=== PATIENT | female | born 1960 | race American Indian/Alaskan Native ===

== ENCOUNTER 2018-05-08 12:49 | Observation (INO) | payer OTHER, MEDICARE, MEDICAID ==
[2018-05-08 12:54] VITALS: BMI 33.5
--- NOTE | 2018-05-08 13:23 | ED PDOC ---
Arrival/HPI - General Chief Complaint: Back Pain Time Seen by Provider: 05/08/18 13:16 Historian: Patient - History of Present Illness Narrative History of Present Illness (Text): 05/08/18 13:17 58 y/o female, pmh including renal stone/lumber disc herniation with infusion surgery perform couple years ago/DVT at age 20, nkda, c/o lower back pain x several months. Pt. stated that she has lower back pain for several years which she had lumbar disc fusion performed by Dr. Love, been seen pain management, more worsening pain for the past few months with no new injury or fall and following up with Dr. Love which trying to apply epidural and nerve block injection for her. Pt. stated that she started to have lower back pain today again as usual, wants to have pain control, no numbness or tingling, no chest pain or shortness of breath. Pt. stated that the lower back pain radiating from the lower back to the bilateral lower extremity to the ankle region with right greater than left, no numbness or tingling, no urinary or bowel incontinence or retention, no other medical or psychological complaints. Past Medical History - Provider Review Nursing Documentation Reviewed: Yes - Infectious Disease Hx of Infectious Diseases: None - Neurological Other/Comment: NUMBNESS TINGLING HANDS - HEENT Other/Comment: FLOATERS IN EYES - Renal Hx Kidney Stones: Yes (PASSED WITHOUT SURGERY) - Hematological/Oncological Hx Anemia: Yes Hx Blood Transfusions: Yes (FOR POST MENOPAUSAL BLEEDING ) - Musculoskeletal/Rheumatological Hx Back Pain: Yes Hx Falls: Yes (AT WORK 2011) Hx Herniated Disk: Yes (DISPLACEMENT) Other/Comment: Back surgery/fusion. L knee sx - Psychiatric Hx Depression: No Hx Emotional Abuse: No Hx Physical Abuse: No Hx Substance Use: No - Surgical History Hx Appendectomy: Yes Hx Arthroscopy: Yes (LEFT KNEE 2012) Hx Dilation and Curettage: Yes Hx Hysterectomy: Yes - Anesthesia Hx Anesthesia: Yes Hx Anesthesia Reactions: No Hx Malignant Hyperthermia: No - Suicidal Assessment Feels Threatened In Home Enviroment: No Family/Social History - Physician Review Nursing Documentation Reviewed: Yes Family/Social History: Unknown Family HX Smoking Status: Former Smoker Hx Alcohol Use: No Hx Substance Use: No Hx Substance Use Treatment: No Allergies/Home Meds Allergies/Adverse Reactions: Allergies No Known Allergies Allergy (Verified 02/04/14 10:01) Home Medications: Home Meds Medication Instructions Recorded Confirmed Ibuprofen [Motrin Tab] 1 tab PO DAILY PRN 05/08/18 05/08/18 Nortriptyline [Pamelor] 2 tab PO HS 05/08/18 05/08/18 Oxycodone HCl/Acetaminophen 1 tab PO Q6H PRN 05/08/18 05/08/18 [Endocet 10-325 mg Tablet] Pregabalin [Lyrica] 1 cap PO TID 05/08/18 05/08/18 tiZANidine [Zanaflex] 2 tab PO PRN PRN 05/08/18 05/08/18 Review of Systems - Review of Systems Constitutional: absent: Fatigue, Fevers Eyes: absent: Vision Changes ENT: absent: Hearing Changes Respiratory: absent: SOB, Cough Cardiovascular: absent: Chest Pain Gastrointestinal: absent: Abdominal Pain, Nausea, Vomiting Musculoskeletal: Arthralgias, Back Pain Skin: absent: Rash, Pruritis Neurological: absent: Headache, Dizziness Psychiatric: absent: Anxiety, Depression, Suicidal Ideation Physical Exam Vital Signs Temp Pulse Resp BP Pulse Ox 05/08/18 15:30 89 18 144/99 H 99 05/08/18 13:00 98 F 90 18 155/90 H 98 Pain Distress: Severe - Systems Exam Head: Present: Atraumatic, Normocephalic Pupils: Present: PERRL Extroacular Muscles: Present: EOMI Conjunctiva: Present: Normal Mouth: Present: Moist Mucous Membranes Neck: Present: Normal Range of Motion Respiratory/Chest: Present: Clear to Auscultation, Good Air Exchange. No: Respiratory Distress, Accessory Muscle Use Cardiovascular: Present: Regular Rate and Rhythm, Normal S1, S2. No: Murmurs Abdomen: No: Tenderness, Distention, Peritoneal Signs Back: Present: Normal Inspection, Paraspinal Tenderness (Ls spine: +ttp on the rt. paraspinal muscle region, no midline tenderness or step off, no rash, no cva tenderness, FROM without limitation, sensation intact, motor 5/5. ). No: CVA Tenderness, Midline Tenderness Upper Extremity: Present: Normal Inspection. No: Cyanosis, Edema Lower Extremity: Present: Normal Inspection, Other (+swelling to the rt. upper thigh region). No: Edema Neurological: Present: GCS=15, CN II-XII Intact, Speech Normal, Motor Func Grossly Intact, Memory Normal Skin: Present: Warm, Dry, Normal Color. No: Rashes Psychiatric: Present: Alert, Oriented x 3, Normal Insight, Normal Concentration Medical Decision Making ED Course and Treatment: 05/08/18 13:28 -UA -IV toradol/valium -LS spine xray/RLE Venuous doppler -observe and reassess 05/08/18 15:46 -Labs ordered, still in pain, morphine ordered. -Pt. refused rectal examination. 05/08/18 16:36 -Bilateral lower extremities venuous doppler: Extensive bilateral post phlebitic changes, greater on the right than the left. No acute DVT. -LS spine xray: There is intradiscal and intrapedicular fusion at L4-5 and L5- S1. There is mild anterior subluxation of L3 over L4. -UA show no UTI -Labs show no acute findings except magnesium 2.3 (normal renal function) -Coag panel within normal limit -Pt. still in pain, limited relief with toradol/valium/morphine, stated that the pain still persist, will call the pmd for admission for observation for this intractable pain. 05/08/18 17:18 -I spoke to Dr. Vaughn, covering DR. Islas, discussed about the case and request to admit to the hospitalist as she is leaving the town. -[facility] hospitalist. -I spoke to the hospitalist, Dr. Prakash Solano, discussed about the case/labs/ radiology result, will admit the patient for observation. -I discussed with Dr. Monozn, he will put in the admission order. - Lab Interpretations Lab Results: 05/08/18 14:00 05/08/18 14:00 Lab Results 05/08/18 14:45: Urine Color Yellow, Urine Appearance Clear, Urine pH 7.0, Ur Specific Ranger 1.020, Urine Protein Trace H, Urine Glucose (UA) Negative, Urine Ketones Negative, Urine Blood Negative, Urine Nitrate Negative, Urine Bilirubin Negative, Urine Urobilinogen 0.2, Ur Leukocyte Esterase Negative, Urine RBC 0 - 2, Urine WBC 1 - 3, Ur Epithelial Cells 4 - 5, Urine Bacteria Many 05/08/18 14:00: WBC 4.6 D, RBC 4.82, Hgb 13.0, Hct 40.0, MCV 83.0, MCH 27.0, MCHC 32.5, RDW 14.4, Plt Count 210, MPV 11.7 H, Gran % 22.0 L, Lymph % (Auto) 68.5 H, [place] % (Auto) 6.7 H, Eos % (Auto) 2.4, Baso % (Auto) 0.4, Gran # 1.02 L , Lymph # (Auto) 3.2, [place] # (Auto) 0.3, Eos # (Auto) 0.1, Baso # (Auto) 0.02 05/08/18 14:00: Sodium 143, Potassium 4.2, Chloride 107, Carbon Dioxide 26, Anion Gap 15, BUN 11, Creatinine 0.7, Est GFR ( Amer) > 60, Est GFR (Non- Af Amer) > 60, Random Glucose 80, Calcium 9.7, Magnesium 2.3 H, Total Bilirubin 0.5, AST 40 H, ALT 29, Alkaline Phosphatase 46, Total Protein 7.7, Albumin 4.4, Globulin 3.3, Albumin/Globulin Ratio 1.4 05/08/18 14:00: PT 10.6, INR 0.93, APTT 28.1, D-Dimer, Quantitative < 200 - RAD Interpretation Radiology Orders: 05/08/18 13:23 LS SPINE WITH OBL > 18 YRS OLD [RAD] Stat DUPLEX LOWER EXTRM VEIN BILAT [US] Stat LS spine: Date of service: 05/08/2018 PROCEDURE: Radiographs of the Lumbar Spine. HISTORY: lower back pain for months COMPARISON: No prior. FINDINGS: BONES: Normal alignment. No listhesis. No fracture. DISC SPACES: There is intradiscal and intrapedicular fusion at L4-5 and L5-S1. There is mild anterior subluxation of L3 over L4. OTHER FINDINGS: None. IMPRESSION: There is intradiscal and intrapedicular fusion at L4-5 and L5-S1. There is mild anterior subluxation of L3 over L4. Bilateral lower extremities venuous doppler: TECHNIQUE: Duplex sonography and color-flow Doppler with graded compression were used to evaluate the deep venous systems of both lower extremities. FINDINGS: There are extensive chronic post phlebitic changes in the right common femoral vein, femoral vein, right popliteal vein and proximal right profunda femoral vein. No hypoechoic occlusive thrombus is present to suggest acute DVT. Mild post phlebitic changes are also noted in the left common femoral vein, femoral vein and popliteal vein. . IMPRESSION: Extensive bilateral post phlebitic changes, greater on the right than the left. No acute DVT. [place] Surfacer: Radiologist - Medication Orders Current Medication Orders: Discontinued Medications Diazepam (Valium) 10 mg PO ONCE ONE PRN Reason: Protocol Stop: 05/08/18 13:25 Last Admin: 05/08/18 13:53 Dose: 10 mg Sodium Chloride (Sodium Chloride 0.9%) 500 mls @ 999 mls/hr IV .Q31M STA Stop: 05/08/18 13:59 Last Admin: 05/08/18 13:55 Dose: 999 mls/hr eMAR Start Stop Document 05/08/18 13:55 SILVINA (Rec: 05/08/18 13:56 SILVINA ANGLIN-PC) Intravenous Solution Start Date 05/08/18 Start Time 13:55 End Date 05/08/18 End time 14:25 Total Infusion Time 30 Ketorolac Tromethamine (Toradol) 30 mg IVP STAT STA Stop: 05/08/18 13:24 Last Admin: 05/08/18 13:54 Dose: 30 mg MAR Pain Assessment Document 05/08/18 13:54 SILVINA (Rec: 05/08/18 13:54 SILVINA HAGER) Pain Reassessment Is this a pain reassessment? No Sleep Is patient sleeping during reassessment? No Presence of Pain Presence of Pain Yes Description Description Intermittent IVP Administration Document 05/08/18 13:54 SILVINA (Rec: 05/08/18 13:54 SILVINA HAGER) Charges for Administration # of IVP Administrations 1 Lidocaine (Lidoderm) 1 ea TD STAT STA Stop: 05/08/18 13:29 Last Admin: 05/08/18 13:53 Dose: 1 ea MAR Transdermal Patch Site Document 05/08/18 13:53 SZA (Rec: 05/08/18 13:53 [facility] [id number]) Transdermal Patch Site Transdermal Patch Site Right Lower Back Morphine Sulfate (Morphine) 6 mg IVP STAT STA Stop: 05/08/18 15:46 Last Admin: 05/08/18 16:10 Dose: 6 mg MAR Pain Assessment Document 05/08/18 16:10 SZA (Rec: 05/08/18 16:10 [facility] [id number]) Pain Reassessment Is this a pain reassessment? No Sleep Is patient sleeping during reassessment? No Presence of Pain Presence of Pain Yes Pain Scale Used Pain Scale Used Numeric Description Description Intermittent Intensity of Pain at present 6 IVP Administration Document 05/08/18 16:10 SILVINA (Rec: 05/08/18 16:10 [facility] [id number]) Charges for Administration # of IVP Administrations 1 - PA / PARTS REMOVER / Resident Statement MD/DO has reviewed & agrees with the documentation as recorded. Disposition/Present on Arrival - Present on Arrival Any Indicators Present on Arrival: No History of DVT/PE: No History of Uncontrolled Diabetes: No Urinary Catheter: No History of Decub. Ulcer: No History Surgical Site Infection Following: None - Disposition Have Diagnosis and Disposition been Completed?: Yes Diagnosis: Intractable low back pain Disposition: HOSPITALIZED Disposition Time: 13:28 Patient Plan: Admission, Observation Patient Problems: Current Active Problems Problem Status Onset Intractable low back pain Acute Condition: STABLE Referrals: Jaya Islas MD [Primary Care Provider] - Follow up with primary Forms: [employer] (Greek)
[2018-05-08] MEDS ORDERED: Lidocaine 5% Patch TD STA (13:28)
[2018-05-08] MEDS ORDERED: Sodium Chloride 0.9% 500 ML IV STA (13:29)
[2018-05-08 14:54] LABS: URINE BILIRUBIN NEGATIVE (NEGATIVE); URINE BLOOD NEGATIVE (NEGATIVE); URINE GLUCOSE (UA) NEGATIVE (NEGATIVE); URINE LEUKOCYTE ESTERASE NEGATIVE Leu/uL (NEGATIVE); URINE PROTEIN TRACE mg/dL (<30 mg/dL); URINE UROBILINOGEN 0.2 E.U./dL (<1 E.U./dL)
[2018-05-08 14:55] LABS: URINE APPEARANCE CLEAR (CLEAR); URINE COLOR YELLOW (YELLOW)
[2018-05-08 15:02] LABS: URINE BACTERIA MANY (NEG); URINE RBC 0 - 2 /hpf (0-2)
[2018-05-08] MEDS ORDERED: Morphine 4 mg/ml ISec IVP STA (15:45)
--- NOTE | 2018-05-08 15:45 | US ---
HISTORY: Leg pain and swelling. Evaluate for DVT PHYSICIAN(S): Iván Camarena MD. TECHNIQUE: Duplex sonography and color-flow Doppler with graded compression were used to evaluate the deep venous systems of both lower extremities. FINDINGS: There are extensive chronic post phlebitic changes in the right common femoral vein, femoral vein, right popliteal vein and proximal right profunda femoral vein. No hypoechoic occlusive thrombus is present to suggest acute DVT. Mild post phlebitic changes are also noted in the left common femoral vein, femoral vein and popliteal vein. . IMPRESSION: Extensive bilateral post phlebitic changes, greater on the right than the left. No acute DVT.
--- NOTE | 2018-05-08 15:50 | RAD ---
Date of service: 05/08/2018 PROCEDURE: Radiographs of the Lumbar Spine. HISTORY: lower back pain for months COMPARISON: No prior. FINDINGS: BONES: Normal alignment. No listhesis. No fracture. DISC SPACES: There is intradiscal and intrapedicular fusion at L4-5 and L5-S1. There is mild anterior subluxation of L3 over L4. OTHER FINDINGS: None. IMPRESSION: There is intradiscal and intrapedicular fusion at L4-5 and L5-S1. There is mild anterior subluxation of L3 over L4.
[2018-05-08 16:15] LABS: BASO # 0.02 K/mm3 (0.0-2.0); BASO % 0.4 % (0.0-3.0); EOS # 0.1 (0.0-0.7); EOS % 2.4 % (1.5-5.0); GRAN # 1.02 (1.4-6.5); LYMPH # 3.2 (1.2-3.4); LYMPH % 68.5 % (22.0-35.0); MEAN CORPUSCULAR HGB CONC 32.5 g/dl (31.0-37.0); MEAN PLATELET VOLUME 11.7 fl (7.0-11.0); MONO # 0.3 (0.1-0.6); MONO % 6.7 % (1.0-6.0); RBC 4.82 10^6/uL (3.5-6.1); RED CELL DISTRIBUTION WIDTH 14.4 % (11.5-14.5); WHITE BLOOD COUNT 4.6 10^3/ul (4.5-11.0)
[2018-05-08 16:26] LABS: ALB/GLOB RATIO 1.4 (1.1-1.8); ALBUMIN 4.4 g/dL (3.0-4.8); CALCIUM 9.7 mg/dL (8.4-10.5); D DIMER < 200 ng/mL (0-243); GFR AFRICAN-AMERICAN > 60; GFR NON-AFRICAN AMERICAN > 60; INR 0.93 (0.93-1.08); PARTIAL THROMBOPLASTIN TIME 28.1 Seconds (25.1-36.5); PROTHROMBIN TIME 10.6 SECONDS (9.4-12.5)
[2018-05-08 16:27] LABS: ALT/SGPT 29 U/L (7-56); AST/SGOT 40 U/L (14-36); BLOOD UREA NITROGEN 11 mg/dL (7-21)
--- NOTE | 2018-05-08 18:57 | CP.PCM.HP ---
<Harshad Rios - Last Filed: 05/08/18 20:48> History of Present Illness - History of Present Illness History of Present Illness: 58 y o female PMhx lumbar disc herniation s/p fusion surgery in [address] Love, DVT during , nephrolithiasis in Nov 2017 medically managed, presents to the ED with a chief complaint of R lower back pain radiating down to the R leg and ankle x 3 mos. Pt states that she has a long- standing hx of back pain, states she was injured back in 2011 after a fall at work, had spinal surgery and was following with pain management (Dr. Nadja Austin) for the past several years. Pt states that she has had back pain during this entire period that radiated down to her R knee, but that the extension of her pain down to her R ankle happened over the past 3 months. Pt states she followed up with Dr. Love in clinic last week and per his recommendation , was supposed to have a nerve block performed over the affected area, but states that she has to wait for her insurance to clear it before she can have the nerve block. Pt states she came to the ED today because she could not stand the pain anymore. Denies bowel/bladder incontinence. Pt states she is able to ambulate at home on own but that she has been bending her back forward more because of the pain. Denies fever, chills, headache, dizziness, chest pain, sob , n/v/d/c, abd pain, urinary complaints, or other symptoms. In ED, pt received valium, toradol, and morphine 1x doses with minimal pain relief. LE Doppler demonstrated extensive bilateral chronic post phlebitic changes, greater on the right than the left, and no acute DVT. Lumbar XR showed intradiscal and inntrapedicular fusion at L4-L5 and L5-S1, and mild anterior subluxation of L3 over L4. PMhx: Lumbar disc herniation, chronic back pain, DVT during , nephrolithiasis (medically managed in Nov 2017) PSurgHx: Spinal fusion surgery in 2011, L total knee replacement several years ago Allergies: NKDA Meds: Lyrica 150 mg tid, Endocet 10-325 mg 1 tab q 6 h PRN, Nortriptyline 10 mg 2 tabs PO hs, Tizanidine 2 mg 2 tabs PO PRN, Motrin 800 mg Fam hx: Mom May 2017 from pancreatic cancer, Maternal aunt - uterine cancer, Second maternal aunt - due to blood clot, Maternal uncle - lung cancer Soc hx: Smoked 2 cigarettes/day and quit 20 y ago, social alcohol use, denies illegal drug use PMD: Dr. Islas Pain management: Dr. Nadja Austin Neurosurgery: Dr. Love Present on Admission - Present on Admission Any Indicators Present on Admission: Yes History of DVT/PE: Yes Review of Systems - Constitutional Constitutional: As Per HPI. absent: Anorexia, Chills, Daytime Sleepiness, Excessive Sweating, Fatigue, Fever, Frequent Falls, Headache, Increased Appetite , Lethargy, Malaise, Night Sweats, Snoring, Sleep Apnea, Weight Gain, Weight Loss, Weakness, Other - Cardiovascular Cardiovascular: absent: As Per HPI, Acrocyanosis, Chest Pain, Chest Pain at Rest , Chest Pain with Activity, Claudication, Diaphoresis, Dyspnea, Dyspnea on Exertion, Edema, Irregular Heart Rhythm, Pain Radiating to Arm/Neck/Jaw, Leg Edema, Leg Ulcers, Lightheadedness, Orthopnea, Palpitations, Paroxysmal Nocturnal Dyspnea, Pedal Edema, Radiating Pain, Rapid Heart Rate, Slow Heart Rate, Syncope, Other - Respiratory Respiratory: absent: As Per HPI, Cough, Dyspnea, Hemoptysis, Dyspnea on Exertion , Wheezing, Snoring, Stridor, Pain on Inspiration, Chest Congestion, Excessive Mucous Production, Change in Mucous Color, Pain with Coughing, Other - Gastrointestinal Gastrointestinal: absent: As Per HPI, Abdominal Pain, Belching, Bloating, Change in Bowel Habits, Change in Stool Character, Coffee Ground Emesis, Constipation, Cramping, Diarrhea, Dyspepsia, Dysphagia, Early Satiety, Excessive Flatus, Fecal Incontinence, Heartburn, Hematemesis, Hematochezia, Loose Stools, Melena, Nausea, Odynophagia, Temesmus, Vomiting, Other - Genitourinary Genitourinary: absent: As Per HPI, Change in Urinary Stream, Difficulty Urinating, Dysuria, Flank Pain, Hematuria, Pyuria, Nocturia, Urinary Incontinence, Urinary Frequency, Urinary Hesitance, Urinary Urgency, Voiding Freq/Small Amts, Freq UTI, Hx Renal/Bladder Calculi, Hx /Renal Surgery, Bladder Distension, Other - Musculoskeletal Musculoskeletal: As Per HPI, Back Pain, Limited Range of Motion, Muscle Cramps, Numbness, Radiating Pain into Limb, Tingling. absent: Abnormal Gait, Arthralgias, Atrophy, Deformity, Joint Swelling, Loss of Height, Muscle Weakness , Myalgias, Neck Pain, Stiffness, Other - Neurological Neurological: Numbness, Radicular Pain, Tingling. absent: As Per HPI, Abnormal Gait, Abnormal Hearing, Abnormal Movements, Abnormal Speech, Behavioral Changes , Burning Sensations, Confusion, Convulsions, Disequilibrium, Dizziness, Focal Weakness, Frequent Falls, Headaches, Lack of Coordination, Loss of Vision, Memory Loss, Paresthesias, Restless Legs, Sensory Deficit, Syncope, Tremor, Vertigo, Weakness, Other Visual Disturbances, Other Past Patient History - Infectious Disease Hx of Infectious Diseases: None - Past Social History Smoking Status: Former Smoker - NEUROLOGICAL Other/Comment: NUMBNESS TINGLING HANDS - HEENT Other/Comment: FLOATERS IN EYES - RENAL Hx Kidney Stones: Yes (PASSED WITHOUT SURGERY) - HEMATOLOGICAL/ONCOLOGICAL Hx Anemia: Yes Hx Blood Transfusions: Yes (FOR POST MENOPAUSAL BLEEDING ) - MUSCULOSKELETAL/RHEUMATOLOGICAL Hx Back Pain: Yes Hx Falls: Yes (AT WORK 2011) Hx Herniated Disk: Yes (DISPLACEMENT) Other/Comment: Back surgery/fusion. L knee sx - PSYCHIATRIC Hx Depression: No Hx Emotional Abuse: No Hx Physical Abuse: No Hx Substance Use: No - SURGICAL HISTORY Hx Appendectomy: Yes Hx Arthroscopy: Yes (LEFT KNEE 2012) Hx Dilation and Curettage: Yes Hx Hysterectomy: Yes - ANESTHESIA Hx Anesthesia: Yes Hx Anesthesia Reactions: No Hx Malignant Hyperthermia: No Meds Allergies/Adverse Reactions: Allergies Allergy/AdvReac Type Severity Reaction Status Date / Time No Known Allergies Allergy Verified 02/04/14 10:01 Physical Exam - Constitutional Appears: Well, Younger Than Stated Age Additional comments: mild/moderate acute distress - Head Exam Head Exam: ATRAUMATIC, NORMAL INSPECTION, NORMOCEPHALIC - Eye Exam Eye Exam: EOMI, Normal appearance, PERRL - ENT Exam ENT Exam: Mucous Membranes Moist, Normal Oropharynx - Neck Exam Neck exam: Positive for: Full Rom, Normal Inspection - Respiratory Exam Respiratory Exam: Clear to Auscultation Bilateral, NORMAL BREATHING PATTERN - Cardiovascular Exam Cardiovascular Exam: REGULAR RHYTHM, +S1, +S2 - GI/Abdominal Exam GI & Abdominal Exam: Normal Bowel Sounds, Soft Additional comments: Non-tender, non-distended - Extremities Exam Extremities exam: Positive for: normal capillary refill, normal inspection, pedal pulses present Additional comments: R foot drop noted, Pos straight leg raise on R lower extremity - Back Exam Additional comments: Tenderness to palpation in R mid-lower back at levels T12-L5; hypertonicity present at levels T12-L5 on R side - Neurological Exam Neurological exam: Alert, CN II-XII Intact, Oriented x3 Additional comments: Motor and sensation intact in all extremities, tenderness to palpation in R anterior and lateral upper thigh - Psychiatric Exam Psychiatric exam: Normal Affect, Normal Mood - Skin Skin Exam: Dry, Intact, Normal Color, Warm Results - Vital Signs Recent Vital Signs: Last Vital Signs Temp 98.6 F 05/08/18 17:17 Pulse 76 05/08/18 17:17 Resp 20 05/08/18 17:17 BP 144/74 05/08/18 17:17 Pulse Ox 100 05/08/18 17:17 - Labs Result Diagrams: 05/08/18 14:00 05/08/18 14:00 Assessment & Plan - Assessment and Plan (Free Text) Assessment: 58 y o female PMhx lumbar disc herniation s/p fusion surgery [place] [address] Love, DVT during , nephrolithiasis in Nov 2017 medically managed, presents with worsening R lower back pain radiating down to the R leg and ankle x 3 mos. Pt admitted for intractable back pain. Plan: Intractable back pain Likely 2/2 chronic back pain hx and failure of outpatient PO pain control S/p valium, morphine, toradol in ED with minimal relief LE Doppler: extensive bilateral chronic post phlebitic changes, greater on the right than the left, and no acute DVT Lumbar XR: intradiscal and inntrapedicular fusion at L4-L5 and L5-S1, and mild anterior subluxation of L3 over L4 Morphine 4 mg q 4 h IVP Flexeril 10 mg q 8 h PRN C/w home meds Lyrica, Nortriptyline Hold home meds Endocet, Tizanadine, Motrin Zofran 4 mg q 6 h PRN nausea/vomiting S/p decadron 10 mg IVP x1 Neurosurgery consulted, recs appreciated Warm compresses to affected areas Regular diet PT eval pending GI/DVT ppx: Protonix, heparin 5000 U subQ q 12 h Pt seen, examined with, and plan discussed with Dr. Solano, attending <Laura Solano R - Last Filed: 05/09/18 07:51> Results - Vital Signs Recent Vital Signs: Last Vital Signs Temp 98.6 F 05/08/18 21:20 Pulse 76 05/08/18 21:20 Resp 20 05/08/18 21:20 BP 144/74 05/08/18 21:20 Pulse Ox 100 05/08/18 20:30 - Labs Result Diagrams: 05/08/18 14:00 05/08/18 14:00 Attending/Attestation - Attestation I have personally seen and examined this patient.: Yes I have fully participated in the care of the patient.: Yes I have reviewed all pertinent clinical information: Yes Notes (Text): Patient seen and examined by me at 18:15 with resident 05/08/18. Case including HPI, physical exam, and physical assessment and plan discussed with resident. Agree with above with following additions/corrections. Patient is 58-year-old female with past medical history significant for lumbar disc herniation status post fusion, DVTs during , nephrolithiasis, and chronic back pain that presents to the emergency room with worsening of lower back pain radiating down her right leg. Patient states that she has been having this pain for approximately 3 months and has been worsening. Patient has radiation of the pain and tingling and numbness down her right leg. Pain is constant and can be sharp or crampy. Patient does follow with neurosurgery and pain management. She states that she was supposed to have a nerve block however this has happened yet. Patient states that her pain on a scale of 1-10, 10 being the worst pain she has ever felt, pain is greater than 10 out of 10. She has tried Motrin, Endocet, tizanidine, nortriptyline, and Lyrica with minimal relief. Patient states she has also tried warm compresses with temporary relief. No associated bowel or bladder incontinence. No chest pain or shortness of breath. No headaches or dizziness. No fevers or chills. No nausea, vomiting, abdominal pain. No dysuria. No diarrhea or constipation. Patient was given Valium and morphine in the emergency room with no relief. All 14 point review of systems reviewed by me. See above HPI. All the other systems are negative. Physical exam: Gen: Awake and alert sitting up in bed in no acute distress HEENT: Normocephalic, atraumatic. Extraocular muscles intact, pupils equal reactive, no scleral icterus. Oropharynx is pink and moist, no pharyngeal erythema or exudate appreciated. Neck is supple. Hearing grossly intact. Ears and nose externally unremarkable. Cardiovascular: Normal rhythm, normal S1-S2. No murmurs, rubs, or gallops appreciated Pulmonary: Normal respiratory effort. No rhonchi, rales or wheezing appreciated. Gastrointestinal: Soft, nontender, nondistended, positive bowel sounds all 4 quadrants, no guarding Musculoskeletal: Decreased range of motion at right lower extremity, positive right straight leg test, positive hypertonicity and spasms on right paraspinal muscles from midthoracic to lower lumbar area Central nervous system: AAO 3. Cranial nerves 2 through 12 grossly intact. Sensation intact. Dermatologic: Skin warm and dry Assessment and plan: Patient is 58-year-old female with past medical history significant for lumbar disc herniation status post fusion, DVTs during , nephrolithiasis, and chronic back pain that presents to the emergency room with worsening of lower back pain radiating down her right leg. Patient found to have lower back pain with radiculopathy 1. Intractable back pain with radiculopathy. Lumbar x-ray per radiologist shows intradiscal and interpedicular fusion at L4, L5 and L5, S1 mild anterior subluxation of L3 over L4. Patient states that the subluxation is chronic and she has been following her doctors for this. Patient's neurosurgeon Dr. Love consulted, follow-up recommendations. Patient given a dose of Decadron to aid in improvement inflammation. Patient placed on morphine and Flexeril for pain management. Continued on home nortriptyline and Lyrica. PT eval and treat. Monitor for improvement. Bilateral lower extremity venous Dopplers per radiologist shows extensive bilateral postphlebitic changes, greater on the right than the left; no acute DVT. Changes seen are likely secondary to patient's history of DVTs. 2. GI and DVT prophylaxis. Protonix and heparin Case was discussed in detail with the patient and spanish medical interpreter regarding current diagnosis and treatment plan.
[2018-05-08] MEDS: Morphine 4 mg/ml ISec IVP SCH ×2 (19:15→23:12)
[2018-05-08] MEDS ORDERED: Pneumococcal 23-Valent Vaccine IM ONE (21:46)
[2018-05-09] MEDS ORDERED: Morphine 2 mg/ml ISec IVP ONE (01:27)
[2018-05-09] MEDS: Morphine 4 mg/ml ISec IVP SCH ×2 (03:14→07:09)
--- NOTE | 2018-05-09 09:46 | CP.PCM.PN ---
Subjective - Date & Time of Evaluation Date of Evaluation: 05/09/18 Time of Evaluation: 09:43 - Subjective Subjective: pt well known to me was seen 1 week ago in office and treatment plan was laid out She has increasing low back pain was told by BE[facility] OPERATOR to come to ER at this point would suggest discharge with f/u instructions to be as previously directed, which she knows She had recent MRI DO NOT order new one She will need Discogram in future if conservative plan does not work so do not order CT Objective - Vital Signs/Intake and Output Vital Signs (last 24 hours): Temp Pulse Resp BP Pulse Ox 97.8 F 61 20 138/88 99 05/09/18 06:00 05/09/18 06:00 05/09/18 06:00 05/09/18 06:00 05/09/18 06:00 - Medications Medications: Current Medications Cyclobenzaprine HCl (Flexeril) 10 mg PO Q8H PRN PRN Reason: Pain, moderate (4-7) Heparin Sodium (Porcine) (Heparin) 5,000 units SC Q8H [facility]AVEZ PRN Reason: Protocol Morphine Sulfate (Morphine) 4 mg IVP Q4H CHAVEZ Last Admin: 05/09/18 07:09 Dose: 4 mg Nortriptyline HCl (Pamelor) 20 mg PO HS [facility] Last Admin: 05/08/18 21:06 Dose: 20 mg Ondansetron HCl (Zofran Inj) 4 mg IVP Q6H PRN PRN Reason: Nausea/Vomiting Pantoprazole Sodium (Protonix Ec Tab) 40 mg PO 0600 CHAVEZ Pregabalin (Lyrica) 150 mg PO TID [facility] Last Admin: 05/08/18 21:05 Dose: 150 mg - Labs Labs: PT 10.6 SECONDS (9.4-12.5) 05/08/18 14:00 INR 0.93 (0.93-1.08) 05/08/18 14:00 APTT 28.1 Seconds (25.1-36.5) 05/08/18 14:00
[2018-05-09] MEDS: Morphine 4 mg/ml ISec IVP PRN ×2 (13:41→18:45)
--- NOTE | 2018-05-09 16:08 | CP.PCM.PN ---
<Margarito Sutton - Last Filed: 05/09/18 16:12> Subjective - Date & Time of Evaluation Date of Evaluation: 05/09/18 Time of Evaluation: 16:05 - Subjective Subjective: Margarito Sutton D.O PGY-1, Internal Medicine progress note for Dr. Solano Patient was examined at bedside, no acute overnight events. Patient complains . Denies fevers, chills, chest pain, shortness of breath, abdominal pain, N/V/D. Objective - Vital Signs/Intake and Output Vital Signs (last 24 hours): Temp Pulse Resp BP Pulse Ox 97.8 F 77 18 128/77 100 05/09/18 14:00 05/09/18 14:00 05/09/18 14:00 05/09/18 14:00 05/09/18 14:00 - Medications Medications: Current Medications Cyclobenzaprine HCl (Flexeril) 10 mg PO Q8H PRN PRN Reason: Pain, moderate (4-7) Last Admin: 05/09/18 11:58 Dose: 10 mg Heparin Sodium (Porcine) (Heparin) 5,000 units SC Q8H CHAVEZ PRN Reason: Protocol Last Admin: 05/09/18 09:59 Dose: Not Given Morphine Sulfate (Morphine) 4 mg IVP Q4H PRN PRN Reason: Pain, moderate (4-7) Last Admin: 05/09/18 13:41 Dose: 4 mg Nortriptyline HCl (Pamelor) 20 mg PO HS [facility] Last Admin: 05/08/18 21:06 Dose: 20 mg Ondansetron HCl (Zofran Inj) 4 mg IVP Q6H PRN PRN Reason: Nausea/Vomiting Pantoprazole Sodium (Protonix Ec Tab) 40 mg PO 0600 [facility]Z Pregabalin (Lyrica) 150 mg PO TID [facility] Last Admin: 05/09/18 14:58 Dose: Not Given - Labs Labs: PT 10.6 SECONDS (9.4-12.5) 05/08/18 14:00 INR 0.93 (0.93-1.08) 05/08/18 14:00 APTT 28.1 Seconds (25.1-36.5) 05/08/18 14:00 - Constitutional Appears: No Acute Distress - Head Exam Head Exam: ATRAUMATIC, NORMAL INSPECTION - Eye Exam Eye Exam: Normal appearance - ENT Exam ENT Exam: Mucous Membranes Moist - Neck Exam Neck Exam: Normal Inspection - Respiratory Exam Respiratory Exam: Clear to Ausculation Bilateral. absent: Rales, Rhonchi, Wheezes - Cardiovascular Exam Cardiovascular Exam: REGULAR RHYTHM, +S1, +S2. absent: Gallop, Rubs, Murmur - GI/Abdominal Exam GI & Abdominal Exam: Soft, Normal Bowel Sounds. absent: Tenderness - Extremities Exam Extremities Exam: absent: Calf Tenderness, Pedal Edema - Back Exam Additional comments: tender to palpation on right lower back - Neurological Exam Neurological Exam: Alert, Awake, Oriented x3 - Psychiatric Exam Psychiatric exam: Normal Affect, Normal Mood - Skin Skin Exam: Dry, Normal Color, Warm Assessment and Plan - Assessment and Plan (Free Text) Assessment: Ms. Schrader is a 58 yo female with PMh lumbar disc herniation s/p fusion surgery (2011), DVT, nephrolithiasis, and chronic back pain admitted for intractable back pain Plan: Intractable back pain - Likely 2/2 chronic back pain history and failure of outpatient PO pain control - S/p valium, morphine, toradol in ED with minimal relief - LE Doppler (05/08): extensive bilateral chronic post phlebitic changes, greater on the right than the left, and no acute DVT - Lumbar Xray (05/08): intradiscal and intrapedicular fusion at L4-L5 and L5-S1, and mild anterior subluxation of L3 over L4 - c/w Morphine 4 mg Q4H IVP PRN - c/w Flexeril 10 mg qQ8H PRN - C/w home meds Lyrica 150mg PO TID and Nortriptyline 20mg PO HS - Hold home meds Endocet, Tizanadine, Motrin - Zofran 4 mg Q6H PRN - Neurosurgery (Dr. Love) consulted, recommended to manage her pain and discharge the patient, patient will receive epidural injection as an outpatient - No MRI or CT scans at this time as per neurosurgery - Warm compresses to affected areas - PT/OT consulted GI/DVT ppx: - Protonix - heparin 5000 U subQ Q12 Patient case reviewed with and plan approved by attending physician, Dr. Solano.l <Laura Solano R - Last Filed: 07/20/18 17:41> Objective - Vital Signs/Intake and Output Vital Signs (last 24 hours): Temp Pulse Resp BP Pulse Ox 97.8 F 77 18 128/77 100 05/09/18 14:00 05/09/18 14:00 05/09/18 14:00 05/09/18 14:00 05/09/18 14:00 - Medications Medications: Current Medications Cyclobenzaprine HCl (Flexeril) 10 mg PO Q8H PRN PRN Reason: Pain, moderate (4-7) Last Admin: 05/09/18 11:58 Dose: 10 mg Heparin Sodium (Porcine) (Heparin) 5,000 units SC Q8H CHAVEZ PRN Reason: Protocol Last Admin: 05/09/18 17:25 Dose: 5,000 units Morphine Sulfate (Morphine) 4 mg IVP Q4H PRN PRN Reason: Pain, moderate (4-7) Last Admin: 05/09/18 13:41 Dose: 4 mg Nortriptyline HCl (Pamelor) 20 mg PO HS [facility] Last Admin: 05/08/18 21:06 Dose: 20 mg Ondansetron HCl (Zofran Inj) 4 mg IVP Q6H PRN PRN Reason: Nausea/Vomiting Pantoprazole Sodium (Protonix Ec Tab) 40 mg PO 0600 CHAVEZ Pregabalin (Lyrica) 150 mg PO TID [facility] Last Admin: 05/09/18 17:25 Dose: 150 mg - Labs Labs: PT 10.6 SECONDS (9.4-12.5) 05/08/18 14:00 INR 0.93 (0.93-1.08) 05/08/18 14:00 APTT 28.1 Seconds (25.1-36.5) 05/08/18 14:00 Attending/Attestation - Attestation I have personally seen and examined this patient.: Yes I have fully participated in the care of the patient.: Yes I have reviewed all pertinent clinical information, including history, physical exam and plan: Yes Notes (Text): Patient seen and examined by me at 10:45AM with resident. Case including HPI, physical exam, and physical assessment and plan discussed with resident. Agree with above with following additions/corrections. Patient states she is feeling better today, however her pain level is a 9/10. Pain medications are helping. Pain is radiating from right lumbar region down right leg. Pain is constant. Positive tingling and numbness in right leg. Patient was able to ambulate with physical therapy. Patient denies any chest pain or shortness of breath. No headaches or dizziness. No fevers or chills. No nausea, vomiting, abdominal pain. No dysuria. No diarrhea or constipation. Physical exam: Gen: Awake and alert sitting up in chair in no acute distress HEENT: Normocephalic, atraumatic. Extraocular muscles intact, pupils equal reactive, no scleral icterus. Oropharynx is pink and moist, no pharyngeal erythema or exudate appreciated. Neck is supple. Cardiovascular: Normal rhythm, normal S1-S2. No murmurs, rubs, or gallops appreciated Pulmonary: Normal respiratory effort. No rhonchi, rales or wheezing appreciated. Gastrointestinal: Soft, nontender, nondistended, positive bowel sounds all 4 quadrants, no guarding Musculoskeletal: Decreased range of motion right lower extremity, positive right straight leg test, positive hypertonicity and spasms right paraspinal muscles from midthoracic to lower lumbar area Central nervous system: AAO 3. Cranial nerves 2-12 grossly intact. Dermatologic: Skin warm and dry Assessment and plan: Patient is 58-year-old female with past medical history significant for lumbar disc herniation status post fusion, DVTs during , nephrolithiasis, and chronic back pain that presents to the emergency room with worsening of lower back pain radiating down her right leg. Patient found to have lower back pain with radiculopathy 1. Intractable back pain with radiculopathy. Lumbar x-ray per radiologist shows intradiscal and interpedicular fusion at L4, L5 and L5, S1 mild anterior subluxation of L3 over L4. Patient is aware of subluxation and this is chronic. Neurosurgery recommendations appreciated. Continue morphine and Flexeril for pain management. Continued on home nortriptyline and Lyrica. Continue physical therapy. Bilateral lower extremity venous Dopplers per radiologist shows extensive bilateral postphlebitic changes, greater on the right than the left; no acute DVT. Changes seen are likely secondary to patient's history of DVTs. 2. GI and DVT prophylaxis. Protonix and heparin 3. Dispo. D/C planning for tomorrow if improved. Case was discussed in detail with the patient and medical office specialist regarding current diagnosis and treatment plan.
[2018-05-09 22:39] VITALS: RESP 20; O2SAT 98
[2018-05-10] MEDS: Morphine 4 mg/ml ISec IVP PRN (00:06)
[2018-05-10] MEDS ORDERED: Pantoprazole 40 mg EC Tab PO SCH (06:00)
[2018-05-10 08:36] VITALS: BP 109/68; PULSE 63; TEMP 97.1
--- NOTE | 2018-05-10 16:24 | CP.PCM.DIS ---
<iMke Gupta - Last Filed: 05/11/18 06:19> Provider - Provider Date of Admission: 05/08/18 17:20 Attending physician: Eric Interiano MD Primary care physician: Jaya Islas MD Consults: Neurosurgeon: Dr. Love Time Spent in preparation of Discharge (in minutes): 45 Diagnosis - Discharge Diagnosis (1) Intractable low back pain Status: Acute Hospital Course - Lab Results Lab Results: Most Recent Lab Values WBC 4.6 10^3/ul (4.5-11.0) D 05/08/18 14:00 RBC 4.82 10^6/uL (3.5-6.1) 05/08/18 14:00 Hgb 13.0 g/dL (12.0-16.0) 05/08/18 14:00 Hct 40.0 % (36.0-48.0) 05/08/18 14:00 MCV 83.0 fl (80.0-105.0) 05/08/18 14:00 MCH 27.0 pg (25.0-35.0) 05/08/18 14:00 MCHC 32.5 g/dl (31.0-37.0) 05/08/18 14:00 RDW 14.4 % (11.5-14.5) 05/08/18 14:00 Plt Count 210 10^3/uL (120.0-450.0) 05/08/18 14:00 MPV 11.7 fl (7.0-11.0) H 05/08/18 14:00 Gran % 22.0 % (50.0-68.0) L 05/08/18 14:00 Lymph % (Auto) 68.5 % (22.0-35.0) H 05/08/18 14:00 [facility] % (Auto) 6.7 % (1.0-6.0) H 05/08/18 14:00 Eos % (Auto) 2.4 % (1.5-5.0) 05/08/18 14:00 Baso % (Auto) 0.4 % (0.0-3.0) 05/08/18 14:00 Gran # 1.02 (1.4-6.5) L 05/08/18 14:00 Lymph # (Auto) 3.2 (1.2-3.4) 05/08/18 14:00 [facility] # (Auto) 0.3 (0.1-0.6) 05/08/18 14:00 Eos # (Auto) 0.1 (0.0-0.7) 05/08/18 14:00 Baso # (Auto) 0.02 K/mm3 (0.0-2.0) 05/08/18 14:00 PT 10.6 SECONDS (9.4-12.5) 05/08/18 14:00 INR 0.93 (0.93-1.08) 05/08/18 14:00 APTT 28.1 Seconds (25.1-36.5) 05/08/18 14:00 D-Dimer, Quantitative < 200 ng/mL (0-243) 05/08/18 14:00 Sodium 143 mmol/L (132-148) 05/08/18 14:00 Potassium 4.2 mmol/L (3.6-5.0) 05/08/18 14:00 Chloride 107 mmol/L (98-107) 05/08/18 14:00 Carbon Dioxide 26 mmol/L (21-33) 05/08/18 14:00 Anion Gap 15 (10-20) 05/08/18 14:00 BUN 11 mg/dL (7-21) 05/08/18 14:00 Creatinine 0.7 mg/dl (0.7-1.2) 05/08/18 14:00 Est GFR ( Amer) > 60 05/08/18 14:00 Est GFR (Non-Af Amer) > 60 05/08/18 14:00 Random Glucose 80 mg/dL (70-110) 05/08/18 14:00 Calcium 9.7 mg/dL (8.4-10.5) 05/08/18 14:00 Magnesium 2.3 mg/dL (1.7-2.2) H 05/08/18 14:00 Total Bilirubin 0.5 mg/dL (0.2-1.3) 05/08/18 14:00 AST 40 U/L (14-36) H 05/08/18 14:00 ALT 29 U/L (7-56) 05/08/18 14:00 Alkaline Phosphatase 46 U/L (38-126) 05/08/18 14:00 Total Protein 7.7 g/dL (5.8-8.3) 05/08/18 14:00 Albumin 4.4 g/dL (3.0-4.8) 05/08/18 14:00 Globulin 3.3 gm/dL 05/08/18 14:00 Albumin/Globulin Ratio 1.4 (1.1-1.8) 05/08/18 14:00 Urine Color Yellow (YELLOW) 05/08/18 14:45 Urine Appearance Clear (CLEAR) 05/08/18 14:45 Urine pH 7.0 (4.7-8.0) 05/08/18 14:45 Ur Specific [place] 1.020 (1.005-1.035) 05/08/18 14:45 Urine Protein Trace mg/dL (<30 mg/dL) H 05/08/18 14:45 Urine Glucose (UA) Negative mg/dL (NEGATIVE) 05/08/18 14:45 Urine Ketones Negative mg/dL (NEGATIVE) 05/08/18 14:45 Urine Blood Negative (NEGATIVE) 05/08/18 14:45 Urine Nitrate Negative (NEGATIVE) 05/08/18 14:45 Urine Bilirubin Negative (NEGATIVE) 05/08/18 14:45 Urine Urobilinogen 0.2 E.U./dL (<1 E.U./dL) 05/08/18 14:45 Ur Leukocyte Esterase Negative Mansi/uL (NEGATIVE) 05/08/18 14:45 Urine RBC 0 - 2 /hpf (0-2) 05/08/18 14:45 Urine WBC 1 - 3 /hpf (0-6) 05/08/18 14:45 Ur Epithelial Cells 4 - 5 /hpf (0-5) 05/08/18 14:45 Urine Bacteria Many (NEG) 05/08/18 14:45 - Hospital Course Hospital Course: Mike Gupta D.O. PGY1 -- General [employer] Worker -- Discharge Summary Hospital Course 58 year old female with past medical history of lumbar disc herniation status post fusion surgery in [address] Love, DVT during , nephrolithiasis in Nov 2017 medically managed, presented to [facility] Emergency Department (ED) with a chief complaint of right lower back pain radiating down to the right leg and ankle. While in the ED, the patient was treated for her pain and muscle spasms with toradol, valium, and morphine, which yielded minimal pain relief. Urinalysis was obtained and showed no urinary infection. Lower extremity doppler was obtained and demonstrated extensive bilateral chronic post phlebitic changes, greater on the right than the left, and no acute DVT. Lumbar X-Ray was obtained and showed intradiscal and inntrapedicular fusion at L4-L5 and L5-S1, and mild anterior subluxation of L3 over L4. Patient was admitted for failure of outpatient pain control. Morphine was continued for pain relief. Flexeril was started as needed for muscle spasm, and home meds including lyrica and nortriptyline were continued. However tizanadine , motrin, and endocet were held. Patient complained of nausea and was given zofran Q6H as needed. Neurosurgery was consulted and recommended to manage the patient's pain and discharge the patient, as the patient will receive epidural injection as an outpatient. No MRI or CT scans at this time, as per neurosurgery. Patient underwent Physical therapy evaluation and treatment. The patient's pain was managed with the above medications in addition to decadron IVP, and application of warm compresses to affected areas. On the day of discharge, the patient had no acute complaints, admitted to decrease in pain level, and the patient denied bowel or bladder incontinence. The patient denied chest pain, shortness of breath, nausea, vomiting, chills, and/or dysuria. Patient was medically optimized, was provided with a prescription for a rolling walker, and was discharged to home with the recommendation to follow-up with neurosurgeon as an outpatient, per said surgeon 's recommendation. Discharge Medications Motrin 800mg PO Daily Nortriptyline 10mg Cap 2 tab PO HS Oxycodone 1 tab PO Q6H PRN Lyrica 150mg 1 cap PO TID Zanaflex 2 tab PO PRN Rolling Walker - Rx Discharge Exam - Head Exam Head Exam: ATRAUMATIC, NORMAL INSPECTION, NORMOCEPHALIC - Eye Exam Eye Exam: EOMI, Normal appearance - ENT Exam ENT Exam: Mucous Membranes Moist, Normal Exam - Respiratory Exam Respiratory Exam: NORMAL BREATHING PATTERN. absent: Rales, Rhonchi, Wheezes - Cardiovascular Exam Cardiovascular Exam: REGULAR RHYTHM. absent: Clicks, Gallop, Rubs - GI/Abdominal Exam GI & Abdominal Exam: Normal Bowel Sounds, Soft, Unremarkable. absent: Tenderness - Back Exam Back exam: muscle spasm, paraspinal tenderness Additional comments: positive right straight leg raise, positive hypertonicity of right paraspinal muscles - Neurological Exam Neurological exam: Alert, CN II-XII Intact, Oriented x3 - Psychiatric Exam Psychiatric exam: Normal Affect, Normal Mood - Skin Skin Exam: Dry, Normal Color, Warm Discharge Plan - Discharge Medications Prescriptions: Walker [Rolling Walker] 1 dev XX DAILY #1 dev - Follow Up Plan Condition: STABLE Disposition: HOME/ ROUTINE Patient education suggested?: Yes Instructions: Spinal Fusion, Nerve Blocks, Back Pain (GEN) Additional Instructions: 1. Follow up with primary care physician within 3-5 days 2. Continue all home medications as they are prescribed to you 3. Follow up with pain management doctor and Dr. Love at your scheduled appointments 4. Should your symptoms return, return to the ED Referrals: Rob Love MD [Staff Provider] - Jaya Islas MD [Primary Care Provider] - <Laura Solano R - Last Filed: 05/11/18 07:47> Provider - Provider Date of Admission: 05/08/18 17:20 Attending physician: Eric Interiano MD Primary care physician: Jaya Islas MD [facility] Course - Lab Results Lab Results: Most Recent Lab Values WBC 4.6 10^3/ul (4.5-11.0) D 05/08/18 14:00 RBC 4.82 10^6/uL (3.5-6.1) 05/08/18 14:00 Hgb 13.0 g/dL (12.0-16.0) 05/08/18 14:00 Hct 40.0 % (36.0-48.0) 05/08/18 14:00 MCV 83.0 fl (80.0-105.0) 05/08/18 14:00 MCH 27.0 pg (25.0-35.0) 05/08/18 14:00 MCHC 32.5 g/dl (31.0-37.0) 05/08/18 14:00 RDW 14.4 % (11.5-14.5) 05/08/18 14:00 Plt Count 210 10^3/uL (120.0-450.0) 05/08/18 14:00 MPV 11.7 fl (7.0-11.0) H 05/08/18 14:00 Gran % 22.0 % (50.0-68.0) L 05/08/18 14:00 Lymph % (Auto) 68.5 % (22.0-35.0) H 05/08/18 14:00 [facility] % (Auto) 6.7 % (1.0-6.0) H 05/08/18 14:00 Eos % (Auto) 2.4 % (1.5-5.0) 05/08/18 14:00 Baso % (Auto) 0.4 % (0.0-3.0) 05/08/18 14:00 Gran # 1.02 (1.4-6.5) L 05/08/18 14:00 Lymph # (Auto) 3.2 (1.2-3.4) 05/08/18 14:00 [facility] # (Auto) 0.3 (0.1-0.6) 05/08/18 14:00 Eos # (Auto) 0.1 (0.0-0.7) 05/08/18 14:00 Baso # (Auto) 0.02 K/mm3 (0.0-2.0) 05/08/18 14:00 PT 10.6 SECONDS (9.4-12.5) 05/08/18 14:00 INR 0.93 (0.93-1.08) 05/08/18 14:00 APTT 28.1 Seconds (25.1-36.5) 05/08/18 14:00 D-Dimer, Quantitative < 200 ng/mL (0-243) 05/08/18 14:00 Sodium 143 mmol/L (132-148) 05/08/18 14:00 Potassium 4.2 mmol/L (3.6-5.0) 05/08/18 14:00 Chloride 107 mmol/L (98-107) 05/08/18 14:00 Carbon Dioxide 26 mmol/L (21-33) 05/08/18 14:00 Anion Gap 15 (10-20) 05/08/18 14:00 BUN 11 mg/dL (7-21) 05/08/18 14:00 Creatinine 0.7 mg/dl (0.7-1.2) 05/08/18 14:00 Est GFR ( Amer) > 60 05/08/18 14:00 Est GFR (Non-Af Amer) > 60 05/08/18 14:00 Random Glucose 80 mg/dL (70-110) 05/08/18 14:00 Calcium 9.7 mg/dL (8.4-10.5) 05/08/18 14:00 Magnesium 2.3 mg/dL (1.7-2.2) H 05/08/18 14:00 Total Bilirubin 0.5 mg/dL (0.2-1.3) 05/08/18 14:00 AST 40 U/L (14-36) H 05/08/18 14:00 ALT 29 U/L (7-56) 05/08/18 14:00 Alkaline Phosphatase 46 U/L (38-126) 05/08/18 14:00 Total Protein 7.7 g/dL (5.8-8.3) 05/08/18 14:00 Albumin 4.4 g/dL (3.0-4.8) 05/08/18 14:00 Globulin 3.3 gm/dL 05/08/18 14:00 Albumin/Globulin Ratio 1.4 (1.1-1.8) 05/08/18 14:00 Urine Color Yellow (YELLOW) 05/08/18 14:45 Urine Appearance Clear (CLEAR) 05/08/18 14:45 Urine pH 7.0 (4.7-8.0) 05/08/18 14:45 Ur Specific [place] 1.020 (1.005-1.035) 05/08/18 14:45 Urine Protein Trace mg/dL (<30 mg/dL) H 05/08/18 14:45 Urine Glucose (UA) Negative mg/dL (NEGATIVE) 05/08/18 14:45 Urine Ketones Negative mg/dL (NEGATIVE) 05/08/18 14:45 Urine Blood Negative (NEGATIVE) 05/08/18 14:45 Urine Nitrate Negative (NEGATIVE) 05/08/18 14:45 Urine Bilirubin Negative (NEGATIVE) 05/08/18 14:45 Urine Urobilinogen 0.2 E.U./dL (<1 E.U./dL) 05/08/18 14:45 Ur Leukocyte Esterase Negative Mansi/uL (NEGATIVE) 05/08/18 14:45 Urine RBC 0 - 2 /hpf (0-2) 05/08/18 14:45 Urine WBC 1 - 3 /hpf (0-6) 05/08/18 14:45 Ur Epithelial Cells 4 - 5 /hpf (0-5) 05/08/18 14:45 Urine Bacteria Many (NEG) 05/08/18 14:45 Attending/Attestation - Attestation I have personally seen and examined this patient.: Yes I have fully participated in the care of the patient.: Yes I have reviewed all pertinent clinical information, including history, physical exam and plan: Yes Notes (Text): Patient seen and examined by me with resident at 08:30AM 05/10/18. Case including discharge plan discussed with resident. Agree with above with following additions/corrections. Patient is 58-year-old female with past medical history significant for lumbar disc herniation status post fusion, DVTs during , nephrolithiasis, and chronic back pain that presented to the emergency room with worsening of lower back pain radiating down her right leg. Please see dictated H&P for further details. Patient was admitted with intractable back pain with radiculopathy. Lumbar x- ray per radiologist shows intradiscal and interpedicular fusion at L4, L5 and L5 , S1 mild anterior subluxation of L3 over L4. Patient states that the subluxation is chronic and she has been following her doctors for this. Patient' s neurosurgeon Dr. Love was consulted. Per Dr. Love patient should be discharged with follow up instructions to be as previously directed, which she knows. No further studies to be ordered. Patient was given a dose of Decadron to aid in improvement inflammation. Patient was also given morphine and Flexeril for pain management. Patient was continued on home nortriptyline and Lyrica. Patient was evaluated by physical therapy. Bilateral lower extremity venous Dopplers per radiologist shows extensive bilateral postphlebitic changes, greater on the right than the left; no acute DVT. Changes seen are likely secondary to patient's history of DVTs. Back pain improved with pain medications and therapy. Patient was able to ambulate. Patient was cleared for discharge by neurosurgery. Patient was discharged home. On day of discharge, patient stated she was feeling much better and wants to go home. Back and leg pain was much better. She was ambulating well. She denied any nausea, vomiting, or abdominal pain. No shortness of breath or chest pain. No headaches or dizziness. No fevers or chills. No dysuria. No diarrhea or constipation. Physical exam: Gen: Awake and alert sitting up in chair in no acute distress HEENT: Normocephalic, atraumatic. Extraocular muscles intact, pupils equal reactive, no scleral icterus. Oropharynx is pink and moist, no pharyngeal erythema or exudate appreciated. Neck is supple. Cardiovascular: Normal rhythm, normal S1-S2. No murmurs, rubs, or gallops appreciated Pulmonary: Normal respiratory effort. No rhonchi, rales or wheezing appreciated. Gastrointestinal: Soft, nontender, nondistended, positive bowel sounds all 4 quadrants, no guarding Musculoskeletal: Improved range of motion right lower extremity, improved hypertonicity and spasms right paraspinal muscles from midthoracic to lower lumbar area Central nervous system: AAO 3. Cranial nerves 2-12 grossly intact. Dermatologic: Skin warm and dry Please see chart for full details. Follow up instructions. Patient to follow-up with the primary care physician doctor within 3-5 days. Continue all home medications as prescribed. Follow up with pain management doctor and Dr. Love at scheduled appointments. All instructions explained to patient in detail. Patient both understands and agrees to all instructions. Time spent in discharging the patient including chart review, medication reconciliation, discussion with the patient, emergency medical technician/driver, consultants, and nursing staff was approximately 40 minutes.
== END 2018-05-10 10:08 | disposition home or self-care (01) ==
LOC: ED 12:49 → ERH 17:20 → 5RNO 20:29
PROVIDERS: ADMIT Internal Medicine; ATTEND Internal Medicine
DX: M54.17 Radiculopathy, lumbosacral region (principal); G89.29 Other chronic pain; Z87.442 Personal history of urinary calculi; Z86.718 Personal history of other venous thrombosis and embolism; Z90.49 Acquired absence of other specified parts of digestive tract; Z90.710 Acquired absence of both cervix and uterus; Z96.652 Presence of left artificial knee joint; Z98.1 Arthrodesis status; Z87.891 Personal history of nicotine dependence; Z91.81 History of falling; Z80.0 Family history of malignant neoplasm of digestive organs; Z80.1 Family history of malignant neoplasm of trachea, bronchus and lung; Z80.49 Family history of malignant neoplasm of other genital organs
CPT/HCPCS: 72110; 80053; 81001; 83735; 85025; 85378; 85610; 85730; 93970; 96372; 96374; 96375; 96376; 97116; 97162; 99285; G0378; G8978; G8979; G8980; J1100; J1644; J1885; J2270; J7040